=== PATIENT | female | born 1990 | race Caucasian/White ===

== ENCOUNTER 2018-07-12 13:47 | Emergency (ER) | payer MEDICAID ==
[~2018-07-12] VITALS: Ht 170.2 cm; Wt 67.1 kg
[2018-07-12 13:52] VITALS: Ht 170.2 cm; Wt 67.1 kg
[2018-07-12 15:00] VITALS: BP 140/71
== END 2018-07-12 15:00 | disposition home or self-care (01) ==
LOC: ED 13:47
DX: S63.602A Unspecified sprain of left thumb, initial encounter (principal); Z88.0 Allergy status to penicillin; Z88.6 Allergy status to analgesic agent; Z91.040 Latex allergy status; W22.8XXA Striking against or struck by other objects, initial encounter; Y93.89 Activity, other specified; Y92.89 Other specified places as the place of occurrence of the external cause; Y99.8 Other external cause status
CPT/HCPCS: Q0092